=== PATIENT | male | born 1960 | race Caucasian/White ===

== ENCOUNTER → 2023-04-22 | Outpatient (CLI) | payer OTHER, MEDICARE | LOC: M PAIN 13:00 | PROVIDERS: ATTEND Nurse Practitioner Family | DX: M25.552 Pain in left hip (principal); G89.29 Other chronic pain; G47.30 Sleep apnea, unspecified; I10 Essential (primary) hypertension; K21.9 Gastro-esophageal reflux disease without esophagitis; F17.290 Nicotine dependence, other tobacco product, uncomplicated; Z91.030 Bee allergy status; Z79.82 Long term (current) use of aspirin; Z79.899 Other long term (current) drug therapy ==